=== PATIENT | male | born 1955 | race Caucasian/White ===

== ENCOUNTER 2018-05-06 11:23 | Emergency (ER) | payer OTHER ==
[~2018-05-06] VITALS: Ht 182.9 cm; Wt 95.3 kg
[~2018-05-06 11:23] MED LIST: CIPROFLOXACIN500 M1 PO; NORCO 5-325 TA1 EACH PO; PHENERGAN 25 MG25 M1 PO
[2018-05-06 11:56] LABS: ABSOLUTE MONOCYTES 0.8 thou/uL (0.0-1.2); ABSOLUTE NEUTROPHILS 6.7 thou/uL (1.6-8.1); BASOPHILS 0.5 %; EOSINOPHILS 0.1 %; HEMATOCRIT 45.5 % (42.0-52.0); HEMOGLOBIN 15.6 gm/dL (14.0-18.0); LYMPHOCYTES 11.7 %; MCH 30.2 pg (26.0-34.0); MCHC 34.3 g/dL (28.0-37.0); MCV 88.1 fL (80.0-100.0); MONOCYTES 9.2 %; MPV 6.6 fl. (7.2-11.1); NUCLEATED RBCS 0 /100WBC; PLATELET COUNT* 226 thou/uL (150-400); POLYS 78.5 %; RBC 5.17 mil/uL (4.50-6.00); RDW-CV 13.5 % (10.5-14.5); WBC 8.5 thou/uL (4.0-11.0)
[2018-05-06 12:04] LABS: ANION GAP 5 mmol/L (7-16); BUN 17 mg/dL (7-18); CALCIUM 8.9 mg/dL (8.5-10.1); CHLORIDE 101 mmol/L (98-107); CO2 28 mmol/L (21-32); CREATININE 1.2 mg/dL (0.6-1.3); GLUCOSE 125 mg/dL (70-99); SODIUM 134 mmol/L (136-145)
[2018-05-06 12:12] LABS: ALBUMIN 3.4 g/dL (3.4-5.0); ALKALINE PHOSPHATASE 57 U/L (46-116); LIPASE 148 U/L (73-393); SGOT 21 U/L (15-37); SGPT 26 U/L (30-65); TOTAL BILIRUBIN 0.9 mg/dL (<0.1-1.0); TROPONIN-I LEVEL <0.06 ng/mL (<0.06)
[2018-05-06 13:06] LABS: INR 1.1; PROTIME 10.9 Seconds (9.20-11.50)
--- NOTE | 2018-05-06 14:02 | EKG ---
[place] [address] ELECTROCARDIOGRAM REPORT Name: GUILHERMEREID Yuen Room: [facility]#: [id number] Admission: 05/06/18 Attend Phys: Discharge: Date of : 53 Report #: [id number] THIS REPORT FOR: //name// [facility] ED Test Date: 2018-05-06 Test Time: 11:51:30 Pat Name: REID LLOYD Department: Room: Gender: Redevelopment Manager: Darnell BEE : 1955 Requested By: Scarlet Murphy Order Number: [id number] MD: Reid Vale Measurements Intervals [place] Rate: 76 P: 29 OK: 163 QRS: 38 QRSD: 86 T: 41 QT: 363 QTc: 409 Interpretive Statements Sinus rhythm No previous ECG available for comparison Electronically Signed On 05-06-2018 14:02:18 CDT by Reid Vale [email or web address] <ELECTRONICALLY SIGNED> By: Reid Vale MD, [facility] 05/06/18 1402 1151 1151 Reid Vale MD, FACC /EPI
[2018-05-06] MEDS ORDERED: MOBIC15 MG PO (14:37)
[2018-05-06 14:58] VITALS: BP 114/84
== END 2018-05-06 15:01 | disposition home or self-care (01) ==
LOC: M.ERS 11:23
PROVIDERS: Personal Emergency Response Attendant
DX: M25.512 Pain in left shoulder (principal)